=== PATIENT | male | born 1965 | race African-American/Black ===

== ENCOUNTER 2017-04-09 06:48 | Inpatient (IN) | payer OTHER ==
--- NOTE | ~2017-04-09 | HC ---
[facility] [address] CONSULTATION Name: SIOBHAN ALONZO Room #: 416-P [facility] IN M.R.#: [id number] Admission: 04/09/17 Attend Phys: Santos Ash MD Discharge: Date of : 63 Report #: [id number] THIS REPORT FOR: //name// CC: [facility] physician/PCP Favio Ash DATE OF SERVICE: 04/09/2017 REASON FOR CONSULTATION: End-stage renal disease requiring hemodialysis. HISTORY OF PRESENT ILLNESS: This is a 51-year-old male with longstanding diabetes mellitus. He has suffered from that for 28 years. He has developed a left heel wound with an extensive diabetic ulcer and infection. He was admitted for further evaluation and treatment of that. We are asked to see him for his hemodialysis needs. The patient states he has end-stage renal disease due to diabetes mellitus. He started dialysis within the past few months. He originally was from [facility] but moved to [place] to be near family member about 8 or 9 months ago. He started dialysis probably about 4 months ago, although he is a bit nonspecific on details. He has been dialyzing using a tunneled right internal jugular vein catheter. He is on Jnourmi-Tzymnfno-Jiyzoqkl schedule and dialyzes at [facility] near [facility]. His normal dialysis is Epyixfh-Dunppuqk-Pwbmplcz with a 4-hour run. He says he gets about 2 liters of ultrafiltration. He still makes some urine, mostly in the morning, but not very much and states that that has been decreasing. He says his dialysis has been fairly uncomplicated. He also has a left upper arm brachchiobasilic vein fistula in place, which is maturing and has not yet been used. PAST MEDICAL HISTORY: Diabetes mellitus since age 23. This is associated with his retinopathy, nephropathy, peripheral neuropathy. He has the diabetic heel ulcer on the left as noted above. He denies any cardiac history. PAST SURGICAL HISTORY: Include the left arm fistula placement, which is a brachchiobasilic fistula. He also had what sounds to be probably a fascitis/cellulitis where he has an extensive scar down his right inguinal area, it looks like he had a spreading infection there. He says it started in his scrotum. He says that was about 10 or 12 years ago. No other surgeries. Again, he denies cardiac history. He has some history of hypertension. MEDICATIONS: On admission include amlodipine 10 mg daily, carvedilol 12.5 mg b.i.d., Colace 100 mg b.i.d., famotidine 20 mg daily, what looks to be Nephro-Pee 1 daily, furosemide 20 mg b.i.d., hydralazine 25 mg q. 8 hours, Lantus insulin. [address] [address] CONSULTATION Name: SIOBHAN ALONZO Room #: 416-P [facility] IN M.R.#: [id number] Admission: 04/09/17 Attend Phys: Santos Ash MD Discharge: Date of : 63 Report #: [id number] ALLERGIES: Listed to HYDROCODONE. SOCIAL HISTORY: The patient is single. Again, he is living in [place] for the past 8 or 9 months with his brother. He is medically disabled. He is unemployed. REVIEW OF SYSTEMS: Denies fevers, chills or sweats. Appetite is good. Denies nausea or vomiting. Has occasional loose bowels. He says he tolerates dialysis without problems, occasional has dyspnea. No chest pain or palpitations, still makes a bit of urine as noted above. Has not had much in the way of edema, other than some swelling related to his left heel. He says the heel ulcer has actually been going on for 6 months or more. No problems with his developing fistula in the left arm. He says he has weakness in his legs, some difficulty getting up with ambulation, particularly from the low chair. He has markedly diminished visual acutely, he is able to see the TV vaguely. Vision is not good enough to read fine print. PHYSICAL EXAMINATION: GENERAL: Very pleasant 51-year-old male, awake, alert and oriented. VITAL SIGNS: Blood pressure 148/76, heart rate 94, respiratory rate 18, oxygen saturation 99%, temperature 97.0. HEENT: Shows pupils are equal and reactive. Sclerae nonicteric. Oral mucosa is moist. NECK: Veins are flat. No adenopathy. Neck is supple. He has a right internal jugular vein tunneled dialysis catheter in place. CHEST: Clear bilaterally. HEART: Has a regular rate and rhythm. ABDOMEN: Has active bowel sounds, is soft and nontender. There is a large healed scar in the right lower quadrant and right inguinal area. No organomegaly or masses. EXTREMITIES: Left arm shows a nice left brachchiobasilic fistula. It is not a transposed fistula. It has a nice thrill, but is not yet quite ready to be used. Right leg shows no edema. Left foot was just redressed, so I did not undress it. It is very foul smelling even while dressed. LABORATORY DATA: Sodium 137, potassium 3.5, chloride 99, bicarbonate 28, BUN 43, creatinine 4.4, glucose 92, calcium 8.4, phosphorus 4.7, total protein 7.3, albumin 2.1. White count 14.7, hemoglobin 8.8, hematocrit 27.2, platelets 280,000. ASSESSMENT: 1. End-stage renal disease. He is due for dialysis tomorrow. We will put the order in for that and dialyze him similar to his usual dialysis orders. I have reviewed these with the patient. 2. Left heel diabetic foot ulcers. It is very foul-smelling. MRI to be done, [facility] [address] [place] [address] CONSULTATION Name: SIOBHAN ALONZO Room #: 416-P [facility] IN [facility].#: [id number] Admission: 04/09/17 Attend Phys: Santos Ash MD Discharge: Date of : 63 Report #: [id number] further evaluations to be done as to whether there is anything to do to save this foot. 3. Longstanding diabetes mellitus with multiple end organ complications. 4. Anemia of end-stage renal disease. We will try to confirm if he is on some erythropoietin at dialysis, will need resumption of the same here. PLAN: 1. Dialysis tomorrow, orders were placed. 2. Reviewed his meds. 3. We will follow along the care of this pleasant patient. By: [id number] Hay Diehl MD /nt
--- NOTE | ~2017-04-09 | HC ---
[facility] [place] [address] [address] CONSULTATION Name: SIOBHAN ALONZO Room #: 416-P ADM IN M.R.#: [id number] Admission: 04/09/17 Attend Phys: Santos Ash MD Discharge: Date of : 63 Report #: [id number] THIS REPORT FOR: //name// CC: [facility] physician/PCP Favio Ash DATE OF SERVICE: 04/09/2017 REASON FOR CONSULTATION: I was asked to evaluate concerning left heel osteomyelitis with diabetes, end-stage renal failure and peripheral vascular disease. HISTORY OF PRESENT ILLNESS: The patient is a 51-year-old who has been on hemodialysis close to 6 months. He has a left AV fistula that was recently placed and progressing nicely. He has had a wound to his left foot for several months. This has worsened and was seen in the outpatient clinic. He had further debridement and noted progressive disease and therefore hospitalized for further care. No fever, chills or sweats. He has some pain in the heel region. Also, he has a wound to the lateral aspect of his right foot. REVIEW OF SYSTEMS: No cardiopulmonary complaints, has had constipation. Minimal urine output. ALLERGIES: None. MEDICATIONS: As noted on his MAR. PAST MEDICAL HISTORY, FAMILY HISTORY, AND SOCIAL HISTORY: Unchanged from his history and physical, which was reviewed. PHYSICAL EXAMINATION: VITAL SIGNS: Afebrile, hemodynamically stable. GENERAL: He is alert and cooperative and pleasant, in no acute distress. HEENT: Unremarkable other than dentition in poor repair. NECK: Supple. Right IJ dialysis catheter site unremarkable. CHEST: Clear. HEART: Regular without murmur. ABDOMEN: Soft and nontender. No hepatosplenomegaly or mass. EXTREMITIES: Left upper extremity AV fistula site was unremarkable. Right lateral foot had a small area of wound and drainage. No surrounding erythema. Left foot had gangrene involving the left heel with exposed bone. There was loss of the Achilles attachment. Pulses in the foot were normal. Pulses in the popliteal and femoral region normal. Sensation was diminished in the toes. IMPRESSION: A 51-year-old diabetic with end-stage renal disease, [address] [address] CONSULTATION Name: SIOBHAN ALONZO Room #: 416-P ADM IN ..#: [id number] Admission: 04/09/17 Attend Phys: Santos Ash MD Discharge: Date of : 63 Report #: [id number] peripheral vascular disease and gangrene of his heel with exposed bone. Also, he has a wound to the lateral aspect of the right foot. Recommend broad antibiotic coverage. Cultures. Orthopedic surgery consultation. I have discussed with the patient that he will likely require a below knee amputation due to the extensive nature of this wound and involvement of his calcaneus. We will await Orthopedic Surgery evaluation, possible to get their intake on possible foot salvage procedure. The patient is a intermediate resident and will require nosocomial coverage pending further culture results. <ELECTRONICALLY SIGNED> By: Álvaro Harvey MD 04/10/17 1522 1112 1159 Álvaro Harvey MD /nt
--- NOTE | ~2017-04-09 | S ---
[facility] [place] [address] [place] [address] SURGICAL PATH RPT PROCEDURE Name: HAKEEM CARDOSO Room #: 416-P ADM IN M.R.#: [id number] Admission: 04/09/17 Date of : 63 Discharge: Report #: [id number] Path Case #: [id number] PATHOLOGY REPORT COLLECTION DATE: 04/10/2017 RECEIVED DATE: 04/10/2017 SUBMITTING PHYS: Dr. Mark Lopez OTHER PHYS: Dr. Santos Pizarro SPECIMEN(S) RECEIVED: A.Left BKA * * * * * * * * * * * * FINAL DIAGNOSIS: A. Left BKA: - Skin and soft tissue with ulcer, necrosis, mixed inflammation, and focal granulation tissue formation. - Bone with acute osteomyelitis. - Vessels with stenosis, recanalization, and calcification. - Viable bone and soft tissue resection margins. PATHOLOGIST: Alex Wooten M.D. REPORT ELECTRONICALLY SIGNED BY: Alex Wooten M.D. DATE/TIME: 04/12/2017 13:22 * * * * * * * * * * * * GROSS PATHOLOGY: Received wrapped in a red biohazard bag, labeled "Hakeem Cardoso and left BKA", is a below the knee amputation 34 cm from the proximal skin resection margin to heel 25 cm from the heel to tip of big toe. Extending about the soft tissue resection margin is a 1.0 cm in length portion of tibia (3.7 cm in diameter) and the fibula 3.4 cm in length (1.2 cm in diameter). The bone resection margin appear viable. The skin and underlying soft tissue appear adenomatous. The heel has a 8.5 x 5.5 cm ulcer with a aguirre-white exudate ulcer bed and the heel bone black brown necrotic/and mummified. Sectioning through the ulcer show a necrotic underlying soft tissue with possible extension to the bone. All the digits are present with a aguirre-white crusted nail. Dental Office Coordinator sections submitted as follows: A1 skin, underlying soft tissue and vascular resection margin A2 bone resection margin (fibula inked blue) after decalcification A3 ulcer A4 bone underlying ulcer after decalcification A5 vasculature [facility] [place] [address] [address] SURGICAL PATH RPT PROCEDURE Name: HAKEEM CARDOSO Room #: 416-P ADM IN M.R.#: [id number] Admission: 04/09/17 Date of : 63 Discharge: Report #: [id number] Path Case #: [id number] CLINICAL HISTORY: None Provided INITIAL CPT CODE(S): A; 22122 Professional services performed by [facility] at [facility] [address] [place] [address] Technical services performed by [facility] at [address] [place] [address], [facility] [address] [address]. [facility] [address] [address] PHONE: [phone] DIRECTOR: Pelon Cevallos M.D. * * * END OF REPORT * * *
--- NOTE | ~2017-04-09 | HC ---
[facility] [place] [address] CONSULTATION Name: SIOBHAN ALONZO Room #: 416-P [facility] IN M.R.#: [id number] Admission: 04/09/17 Attend Phys: Santos Ash MD Discharge: 04/12/17 Date of : 63 Report #: [id number] THIS REPORT FOR: //name// CC: [facility] physician/PCP Favio Ash DATE OF SERVICE: 04/11/2017 HISTORY OF PRESENT ILLNESS: The patient is a 51-year-old male patient with whom I am familiar some in the clinic on Sunday morning with a chronic ulceration of his left heel. He had significant infection and exposed bone and was admitted to the hospital for intravenous antibiotic therapy and surgical care. He has been seen in consultation by Orthopedic Surgery and has undergone below knee amputation. He is seen in his room today. He states he has pain at the amputation site but he feels that the surgery was somewhat of a relief and he is glad that it is over and is anticipating moving on further. PAST MEDICAL HISTORY: Positive for history of diabetes mellitus, chronic ulceration on the left heel with subsequent bony exposure. He has a history of end-stage renal disease requiring hemodialysis. ALLERGIES: None. MEDICATIONS: As per his MAR. REVIEW OF SYSTEMS: CONSTITUTIONAL: No fever, chills, or weight loss. NEUROLOGICAL: The patient has focal weakness. ENT: The patient denies earache, nasal drainage. CARDIOVASCULAR: The patient denies chest pain, palpitations or diaphoresis. PULMONARY: The patient denies cough, shortness of breath. GASTROINTESTINAL: The patient denies nausea, abdominal pain. ORTHOPEDIC: The patient does note pain in the foot and left leg following his surgery. Other systems in a 12-point review of systems are negative. PHYSICAL EXAMINATION: VITAL SIGNS: At this time include pulse 91, respiration of 20, blood pressure 149/74, temperature 97.8. GENERAL: This is a chronically ill-appearing male patient who appears to be in minimal distress. HEENT: Head is normocephalic. Nose and throat clear. NECK: Supple. LUNGS: Clear. HEART: Regular rhythm. ABDOMEN: Soft. Bowel sounds present. [facility] [address] [place] [address] CONSULTATION Name: SIOBHAN ALONZO Room #: 416-P [facility] IN M.R.#: [id number] Admission: 04/09/17 Attend Phys: Santos Ash MD Discharge: 04/12/17 Date of : 63 Report #: [id number] EXTREMITIES: Demonstrates left below knee amputation site shows some bleeding along the incision line. There is some generalized tenderness, no separation or infection. Hemovac is still in place. Right foot demonstrates ulceration over the base of the fifth metatarsal with some moderate callus present. CLINICAL IMPRESSION: 1. Diabetic foot infection with obvious osteomyelitis and destruction of the calcaneus, now status post below-knee amputation. 2. Neuropathic diabetic ulceration of the right foot. RECOMMENDATIONS: At this point in time, we will recommend topical Xeroform gauze to the right foot and may require some paring of callus. We will recommend a silver alginate along the left BKA incision line, Kerlix and then Abner wrap for compression. I will continue to follow him here, appreciate Surgery and Infectious Disease and Nephrology seeing him while here in the hospital. <ELECTRONICALLY SIGNED> By: Favio Pizarro MD 04/13/17 1750 2143 1527 Favio Pizarro MD /nt
--- NOTE | ~2017-04-09 | O ---
[facility] [place] [address] OPERATIVE REPORT Name: SIOBHAN ALONZO Room #: 416-P ADM IN M.R.#: [id number] Admission: 04/09/17 Attend Phys: Santos Ash MD Discharge: Date of : 63 Report #: [id number] THIS REPORT FOR: //name// CC: [facility] physician/PCP Favio Ash DATE OF SERVICE: 04/10/2017 PREOPERATIVE DIAGNOSIS: Left leg gangrene. POSTOPERATIVE DIAGNOSIS: Left leg gangrene. PROCEDURE: Left leg jvzof-jqt-tcao amputation. SURGEON: Mark Lopez MD. ANESTHESIA: General. ESTIMATED BLOOD LOSS: Minimal. TOURNIQUET TIME: 45 minutes. DESCRIPTION OF PROCEDURE: The patient was brought to the operating room where he was placed under general anesthesia. Once under adequate general anesthesia, his left lower extremity was prepped and draped in sterile manner. The extremity was elevated and tourniquet placed to 300 mmHg. A fishmouth type incision was then made over the mid portion of the left leg. This was dissected sharply down the periosteum of the leg, which was then incised and subsequently the musculature was directly dissected off of the bone. The posterior tibial vessels and peroneal vessels were then identified and tagged for later ligation. The Condon elevator was used to elevate the periosteum off of the tibia. The tibia was then transected with the oscillating saw. This was then beveled anteriorly with the oscillating saw. The fibula was transected a few centimeters proximal to this in an oblique fashion with the oscillating saw as well. The distal limb was then removed. The wound was irrigated copiously. The posterior tibial and peroneal vessels were then ligated with 0 silk suture. The wound was then irrigated once again copiously and closed with #1 Vicryl in the deep fascia, 2-0 Vicryl in subcutaneous tissues and william for the skin. The wound was dressed with Xeroform, 4 x 4s, and a sterile soft compressive dressing was placed. Tourniquet was let down at 45 minutes. There were no [facility] [address] [place] [address] OPERATIVE REPORT Name: CHERISIOBHAN Room #: 416-P [facility] IN [facility].#: [id number] Admission: 04/09/17 Attend Phys: Santos Ash MD Discharge: Date of : 63 Report #: [id number] complications from the procedure. The patient tolerated the procedure well and went to the recovery room without incident. <ELECTRONICALLY SIGNED> By: Mark Lopez MD 04/12/17 0758 1820 1909 Mark Lopez MD /nt
--- NOTE | ~2017-04-09 | HC ---
[facility] [place] [address] CONSULTATION Name: SIOBHAN ALONZO Room #: 416-P [facility] IN M.R.#: [id number] Admission: 04/09/17 Attend Phys: Santos Ash MD Discharge: 04/12/17 Date of : 63 Report #: [id number] THIS REPORT FOR: //name// CC: [facility] physician/PCP Favio Ash CHIEF COMPLAINT: Left leg gangrene. HISTORY OF PRESENT ILLNESS: This is a patient of Dr. Pizarro'humaira who was admitted on 04/09/2017 with a chronic posterior left ankle wound, which he has been treating. He is a diabetic, on dialysis, admitted essentially for a possible swign-zzg-jtih amputation. PAST MEDICAL HISTORY: Significant for diabetes mellitus, end-stage renal disease and cellulitis with osteomyelitis. REVIEW OF SYSTEMS: As above. PHYSICAL EXAMINATION: EXTREMITIES: Examination of the patient's left lower extremity notes a large posterior ankle wound, essentially a large defect where Achilles inserts onto the calcaneus. The calcaneus itself is blackened. The defect extends to the posterior ankle joint. He has limited vascularity to the distal extremity. The extremities warm and there is a significant odor to the extremity. VITAL SIGNS: Note a temperature of 36.7, blood pressure is 163/83. LABORATORY STUDIES: Note hemoglobin of 8.2, white count of 11.8. Creatinine is 3.0. MRI is pending. IMPRESSION: Osteomyelitis with large nonhealing wound, left leg gangrene. PLAN: Options were discussed with the patient. He is a candidate for a bhsyj-dme-lqlb amputation. We would proceed in the near future. By: [id number] Mark Lopez MD /nt
--- NOTE | ~2017-04-09 | HC ---
[facility] [place] [address] [address] CONSULTATION Name: SIOBHAN ALONZO Room #: 416-P [facility] IN ..#: [id number] Admission: 04/09/17 Attend Phys: Santos Ash MD Discharge: 04/12/17 Date of : 63 Report #: [id number] THIS REPORT FOR: //name// CC: [facility] physician/PCP Favio Ash DATE OF SERVICE: 04/11/2017 HISTORY OF PRESENT ILLNESS: The patient is a 51-year-old -[place] male with a history of left leg gangrene and osteomyelitis who was admitted to [facility] [place] and underwent a left below-the- knee amputation on 04/10/2017. We are seeing him in rehabilitation medicine consultation. PAST MEDICAL HISTORY: Includes insulin-dependent diabetes mellitus, end-stage renal disease for which he is on hemodialysis 3 times a week. He does have a lateral right foot wound, but this has not affected his ability to put weight on the right lower extremity. MEDICATIONS: Please see the full medication listing. SOCIAL HISTORY: He is a residential resident, lived at [facility]. He used a walker to get around. REVIEW OF SYSTEMS: He did not offer any current complaints of chest pain, shortness of breath, or abdominal discomfort. He was not on oxygen premorbidly. PHYSICAL EXAMINATION: GENERAL: A 51-year-old -[place] male in no obvious distress. VITAL SIGNS: Last recorded temperature 98, pulse 86, respirations 20, and blood pressure 163/83. NEUROLOGIC: He is alert, oriented. Nasal prong O2 is in place. Facies are symmetric. Functional range of motion of both upper extremities. Strength appeared to be a grade 4+ to 5-/5. DTRs are trace to 1. Lower extremities, right lower extremity, there is a dressing in place over the lateral foot wound. He gets no focal calf swelling. Strength appears to be a grade 4/5. Left lower extremity reveals the left ykwfx-jfa-ezht amputation with the incision dressed, drain in place. ASSESSMENT: A 51-year-old -[place] male with the following problems: 1. Left nkuve-uve-lbps amputation, 04/10/2017. 2. Osteomyelitis, left lower extremity. 3. Diabetes mellitus. 4. End-stage renal disease. PLAN: Therapist to evaluate. He certainly may benefit from a short acute [address] [address] CONSULTATION Name: SIOBHAN ALONZO Room #: 416-P DIS IN .R.#: [id number] Admission: 04/09/17 Attend Phys: Santos Ash MD Discharge: 04/12/17 Date of : 63 Report #: [id number] in-hospital inpatient rehabilitation stay prior to returning to his facility. At this point, we will follow along with you. <ELECTRONICALLY SIGNED> By: Anselmo Chamberlain MD 04/13/17 1423 1315 0119 Anselmo Chamberlain MD /EVELYN
[2017-04-09 10:30] VITALS: BP 148/76
[2017-04-09 12:13] LABS: HEMATOCRIT 27.2 % (42.0-52.0); HEMOGLOBIN 8.8 gm/dL (14.0-18.0); MCH 25.8 pg (26.0-34.0); MCHC 32.3 g/dL (28.0-37.0); MCV 79.9 fL (80.0-100.0); RBC 3.41 mil/uL (4.50-6.00); RDW 15.4 % (10.5-14.5); WBC 14.7 thou/uL (4.0-11.0)
[2017-04-09 12:25] LABS: ALBUMIN 2.1 g/dL (3.4-5.0); CALCIUM 8.4 mg/dL (8.5-10.1); CREATININE 4.4 mg/dL (0.7-1.3); PHOSPHORUS 4.7 mg/dL (2.5-4.9); POTASSIUM 3.5 mmol/L (3.5-5.1); TOTAL BILIRUBIN 0.4 mg/dL (<0.1-1.0); TOTAL PROTEIN 7.3 g/dL (6.4-8.2)
[2017-04-09] MEDS ORDERED: LIDODERM1 EACH TRANSDERM (14:15)
[2017-04-09] MEDS ORDERED: LASIX 20 MG TAB20 MG PO (14:24)
[2017-04-09] MEDS ORDERED: FAMOTIDINE 20 M20 MG PO (14:25)
[2017-04-09] MEDS ORDERED: HYDRALAZINE 2525 MG PO (14:25)
[2017-04-09] MEDS ORDERED: FOLIC ACID1 MG PO (14:42)
[2017-04-09] MEDS ORDERED: NORVASC10 MG PO (14:42)
[2017-04-09] MEDS ORDERED: CARVEDILOL12.5 MG PO (14:42)
[2017-04-09] MEDS ORDERED: COLACE100 MG PO (14:43)
[2017-04-09] MEDS ORDERED: NEPHRO-VITE TA0.8 MG PO (14:44)
[2017-04-09] MEDS ORDERED: LANTUS100 UNIT/M SUBQ (14:45)
[2017-04-09] MEDS ORDERED: PROBIOTIC1 EAC1 PO ×2 (14:45→14:46)
[2017-04-09 16:00] VITALS: BP 149/78
[2017-04-09 21:10] VITALS: BP 148/75
[2017-04-10 05:50] VITALS: BP 150/77
[2017-04-10 06:45] LABS: ALBUMIN 1.9 g/dL (3.4-5.0); CALCIUM 8.2 mg/dL (8.5-10.1); CREATININE 4.6 mg/dL (0.7-1.3); PHOSPHORUS 4.9 mg/dL (2.5-4.9); POTASSIUM 3.6 mmol/L (3.5-5.1)
[2017-04-10 15:55] VITALS: BP 162/83
[2017-04-10 21:52] VITALS: BP 132/71
[2017-04-11 00:34] VITALS: BP 158/84
[2017-04-11 05:23] VITALS: BP 166/84
[2017-04-11 05:25] LABS: HEMATOCRIT 25.8 % (42.0-52.0); HEMOGLOBIN 8.2 gm/dL (14.0-18.0); MCH 25.7 pg (26.0-34.0); MCHC 31.7 g/dL (28.0-37.0); MCV 80.9 fL (80.0-100.0); PLATELET COUNT 260 thou/uL (150-400); RBC 3.19 mil/uL (4.50-6.00); RDW 15.5 % (10.5-14.5); WBC 11.8 thou/uL (4.0-11.0)
[2017-04-11 05:27] LABS: MANUAL DIFF YES
[2017-04-11 05:31] LABS: CALCIUM 7.5 mg/dL (8.5-10.1); POTASSIUM 4.2 mmol/L (3.5-5.1)
[2017-04-11 07:06] LABS: ABSOLUTE NEUTROPHILS 9.8 thou/uL (1.4-8.2); METAMYELOCYTES 1 %; TOTAL CELL COUNT 100
[2017-04-11 07:07] LABS: ANISOCYTOSIS 1+
[2017-04-11 08:20] VITALS: BP 163/83
[2017-04-11 15:33] VITALS: BP 156/90
[2017-04-11 20:00] VITALS: BP 149/74
[2017-04-12 04:00] VITALS: BP 164/79
[2017-04-12 06:12] LABS: HEMATOCRIT 24.6 % (42.0-52.0); HEMOGLOBIN 7.9 gm/dL (14.0-18.0); MCHC 32.1 g/dL (28.0-37.0); PLATELET COUNT 223 thou/uL (150-400); RBC 3.04 mil/uL (4.50-6.00); RDW 15.5 % (10.5-14.5); WBC 10.5 thou/uL (4.0-11.0)
[2017-04-12 06:13] LABS: MANUAL DIFF YES
[2017-04-12 06:32] LABS: ALBUMIN 1.9 g/dL (3.4-5.0); CALCIUM 7.6 mg/dL (8.5-10.1); PHOSPHORUS 4.5 mg/dL (2.5-4.9); POTASSIUM 4.5 mmol/L (3.5-5.1)
[2017-04-12 08:00] VITALS: BP 157/77
[2017-04-12 08:40] LABS: ABSOLUTE NEUTROPHILS 8.8 thou/uL (1.4-8.2); ANISOCYTOSIS 1+; HYPOCHROMASIA 1+; MICROCYTES 1+; PLATELET ESTIMATE NORMAL; TOTAL CELL COUNT 100; TOXIC GRANULATION SLIGHT
[2017-04-12] MEDS ORDERED: UNASYN 3 GM VIAL3 G1 IV (13:02)
[2017-04-12 16:27] VITALS: BP 148/72
== END 2017-04-12 17:35 | DRG 239 ==
LOC: HYPER 06:48 → 4N 10:05 → HYPER 12:54 → 4N 04-12 17:35
PROVIDERS: Family Medicine; Internal Medicine Nephrology; Orthopaedic Surgery Foot and Ankle Surgery
PROC: 5A1D70Z Performance of Urinary Filtration, Intermittent, Less than 6 Hours Per Day (ICD-10-PCS; principal; 2017-04-09)
PROC: 0Y6J0Z2 Detachment at Left Lower Leg, Mid, Open Approach (ICD-10-PCS; 2017-04-10)
DX: E11.52 Type 2 diabetes mellitus with diabetic peripheral angiopathy with gangrene (principal); N18.6 End stage renal disease; M86.8X6 Other osteomyelitis, lower leg; L03.119 Cellulitis of unspecified part of limb; E11.621 Type 2 diabetes mellitus with foot ulcer; E11.22 Type 2 diabetes mellitus with diabetic chronic kidney disease; E11.69 Type 2 diabetes mellitus with other specified complication; D63.8 Anemia in other chronic diseases classified elsewhere; Z79.4 Long term (current) use of insulin; Z79.899 Other long term (current) drug therapy; Z88.6 Allergy status to analgesic agent; Z28.21 Immunization not carried out because of patient refusal
CPT/HCPCS: 10790; 32100; 50010; 50101; 50386; 51412; 53000; 56524; 56525; 57091; 62110; 62900; 70005

== ENCOUNTER → 2017-05-14 | Outpatient (CLI) | payer OTHER ==
[~2017-05-14] MED LIST: BRIMONIDINE TART5 ML OPHTHALMIC; CARVEDILOL12.5 MG PO; COLACE100 MG PO; DUONEB 2.5-0.5 M3 ML INH; FAMOTIDINE 20 M20 MG PO; FOLIC ACID1 MG PO; HUMALOG100 UNIT/1 SUBQ; HYDRALAZINE 2525 MG PO; LANTUS100 UNIT/M SUBQ; LASIX 20 MG TAB20 MG PO; LEVEMIR SUBQ; LIDODERM1 EACH TRANSDERM; NEPHRO-VITE TA0.8 MG PO; NEPHROCAPS SOFT1 CAP PO; NEURONTIN 300300 M1 PO; NORCO 7.5-3251 EACH PO; NORVASC10 MG PO; PROBIOTIC1 EAC1 PO; PROCRIT20000 UNIT SUBQ; TIMOLOL MALEATE5 M1 OPHTHALMIC; TRAMADOL 50 MG50 MG PO; TRUSOPT OCUMETE10 ML OPHTHALMIC; UNASYN 3 GM VIAL3 G1 IV
== END ==
LOC: HYPER 04-30 10:06
DX: T87.89 Other complications of amputation stump (principal); L89.612 Pressure ulcer of right heel, stage 2; L89.620 Pressure ulcer of left heel, unstageable; L89.890 Pressure ulcer of other site, unstageable; E11.621 Type 2 diabetes mellitus with foot ulcer; L97.521 Non-pressure chronic ulcer of other part of left foot limited to breakdown of skin; L97.511 Non-pressure chronic ulcer of other part of right foot limited to breakdown of skin; L97.421 Non-pressure chronic ulcer of left heel and midfoot limited to breakdown of skin; L97.411 Non-pressure chronic ulcer of right heel and midfoot limited to breakdown of skin; E11.39 Type 2 diabetes mellitus with other diabetic ophthalmic complication; H40.9 Unspecified glaucoma; E11.36 Type 2 diabetes mellitus with diabetic cataract; E11.22 Type 2 diabetes mellitus with diabetic chronic kidney disease; I12.0 Hypertensive chronic kidney disease with stage 5 chronic kidney disease or end stage renal disease; N18.6 End stage renal disease; R06.00 Dyspnea, unspecified; F17.200 Nicotine dependence, unspecified, uncomplicated; Z98.49 Cataract extraction status, unspecified eye; Y83.5 Amputation of limb(s) as the cause of abnormal reaction of the patient, or of later complication, without mention of misadventure at the time of the procedure; Y92.89 Other specified places as the place of occurrence of the external cause

== ENCOUNTER → 2017-06-18 | Outpatient (CLI) | payer OTHER | LOC: HYPER 07:11 | DX: E11.621 Type 2 diabetes mellitus with foot ulcer (principal); L97.511 Non-pressure chronic ulcer of other part of right foot limited to breakdown of skin; R26.81 Unsteadiness on feet; E11.22 Type 2 diabetes mellitus with diabetic chronic kidney disease; I12.0 Hypertensive chronic kidney disease with stage 5 chronic kidney disease or end stage renal disease; N18.6 End stage renal disease; Z99.2 Dependence on renal dialysis; E11.36 Type 2 diabetes mellitus with diabetic cataract; F17.210 Nicotine dependence, cigarettes, uncomplicated ==

== ENCOUNTER → 2017-07-16 | Outpatient (CLI) | payer OTHER | LOC: HYPER 06:46 | DX: T87.89 Other complications of amputation stump (principal); E11.621 Type 2 diabetes mellitus with foot ulcer; L97.511 Non-pressure chronic ulcer of other part of right foot limited to breakdown of skin; L89.890 Pressure ulcer of other site, unstageable; R26.81 Unsteadiness on feet; E11.22 Type 2 diabetes mellitus with diabetic chronic kidney disease; I12.0 Hypertensive chronic kidney disease with stage 5 chronic kidney disease or end stage renal disease; N18.6 End stage renal disease; Z99.2 Dependence on renal dialysis; E11.36 Type 2 diabetes mellitus with diabetic cataract; F17.200 Nicotine dependence, unspecified, uncomplicated; Y83.5 Amputation of limb(s) as the cause of abnormal reaction of the patient, or of later complication, without mention of misadventure at the time of the procedure ==

== ENCOUNTER → 2017-08-06 | Outpatient (CLI) | payer OTHER | LOC: HYPER 06:55 | DX: T87.89 Other complications of amputation stump (principal); L89.890 Pressure ulcer of other site, unstageable; E11.621 Type 2 diabetes mellitus with foot ulcer; L97.511 Non-pressure chronic ulcer of other part of right foot limited to breakdown of skin; E11.22 Type 2 diabetes mellitus with diabetic chronic kidney disease; I12.0 Hypertensive chronic kidney disease with stage 5 chronic kidney disease or end stage renal disease; N18.6 End stage renal disease; E11.36 Type 2 diabetes mellitus with diabetic cataract; E11.39 Type 2 diabetes mellitus with other diabetic ophthalmic complication; H40.9 Unspecified glaucoma; F17.200 Nicotine dependence, unspecified, uncomplicated; Z98.49 Cataract extraction status, unspecified eye; Y83.5 Amputation of limb(s) as the cause of abnormal reaction of the patient, or of later complication, without mention of misadventure at the time of the procedure ==